=== PATIENT | female | born 1960 | race American Indian/Alaskan Native ===

== ENCOUNTER 2018-12-04 14:56 | Emergency (ER) | payer MEDICAID ==
--- NOTE | 2018-12-04 15:12 | Emergency Department Report ---
Blank Doc - Documentation Documentation: 58-year-old female that presents with right 5th toe pain. Stated had hit her toe. Denies any other complaints or symptoms. This initial assessment diagnostic orders/clinical plan/treatment(s) is/are subject to change based on patient's health status, clinical progression and re- assessment by fellow clinical providers in the ED. Further treatment and workup at subsequent clinical providers discretion. Patient/guardians urged not to elope from ED s their condition may be serious if not clinically assessed and managed. Initial orders include: 1-Patient sent to [facility] for further evaluation and treatment 2- xray
[2018-12-04 15:15] VITALS: BP 112/62
--- NOTE | 2018-12-04 16:39 | XRay Report ---
FINAL REPORT PROCEDURE: Right foot. TECHNIQUE: Three views. HISTORY: Right foot pain. COMPARISON: No prior studies are available for comparison. FINDINGS: The bones appear intact without fracture or dislocation. The joint spaces appear satisfactory. The so ft tissues are unremarkable. IMPRESSION: No significant abnormality.
--- NOTE | 2018-12-04 18:08 | Emergency Department Report ---
HPI - General Chief Complaint: Extremity Injury, Lower Time Seen by Provider: 12/04/18 15:11 - HPI HPI: 58-year-old female with no prior medical history presents to the ED complaining of right fifth digit toe pain let's been hydrating since about November 24. Patient states that she hit it on the side of the bed and pain began shortly after that. Patient states that pain is not getting better. She denies any deformity, any other falls or trauma. ED Past Medical Hx - Past Medical History Previous Medical History?: No - Surgical History Additional Surgical History: tonsillectomy,left ovary,tubiligation - Social History Smoking Status: Never Smoker Substance Use Type: None - Medications Home Medications: Home Medications Medication Instructions Recorded Confirmed Last Taken Type Ibuprofen [Motrin] 800 mg PO Q8HR #30 tablet 12/04/18 Unknown Rx ED Review of Systems ROS: Stated complaint: POSS SPRAINED PINKY TOE Other details as noted in HPI Comment: All other systems reviewed and negative Physical Exam - Physical Exam Vital Signs: Vital Signs 12/04/18 15:11 Temperature 98.2 F Pulse Rate 89 Respiratory 18 Rate Blood Pressure 112/62 O2 Sat by Pulse 100 Oximetry Physical Exam: GENERAL: Alert and oriented x3, no apparent distress, Normal Gait, atraumatic. HEAD: Head is normocephalic and a-traumatic. EXTREMITIES/MUSCULOSKELETAL: No cyanosis, clubbing, rash, lesions or edema. Full ROM bilaterally. UE/LE Pulses 2+ bilaterally. LE and UE 5+ strength bilaterally, no deformity seen, nontender to palpation. NEUROLOGIC: The patient is cooperative with no focal neurologic deficits. SKIN: Warm and dry, No lesions, No ulceration or induration present. ED Course Vital Signs 12/04/18 15:11 Temperature 98.2 F Pulse Rate 89 Respiratory 18 Rate Blood Pressure 112/62 O2 Sat by Pulse 100 Oximetry ED Medical Decision Making - Radiology Data Radiology results: report reviewed, image reviewed FINAL REPORT PROCEDURE: Right foot. TECHNIQUE: Three views. HISTORY: Right foot pain. COMPARISON: No prior studies are available for comparison. FINDINGS: The bones appear intact without fracture or dislocation. The joint spaces appear satisfactory. The soft tissues are unremarkable. IMPRESSION: No significant abnormality. Transcribed By: MRM Dictated By: YENIFER PHILIPPE MD Electronically Authenticated By: YENIFER PHILIPPE MD Signed Date/Time: 12/04/18 1639 - Medical Decision Making 58-year-old female presents with right fifth digit toe pain/contusion X-ray shows no acute findings let's location is no fractures. Discussed this with the patient. I discussed the patient to follow up with primary care physician. Motrin given for pain. Vital signs are normal patient is in no acute distress Critical care attestation.: If time is entered above; I have spent that time in minutes in the direct care of this critically ill patient, excluding procedure time. ED Disposition Clinical Impression: Toe pain, right Disposition: DC-01 TO HOME OR SELFCARE Is pt being admited?: No Does the pt Need Aspirin: No Condition: Stable Instructions: Arthralgia (ED) Additional Instructions: Make sure to follow up with the primary care physician as discussed. Take all your medications as you've been prescribed. If you have any worsening symptoms or develop new symptoms please return to ED immediately. Prescriptions: Ibuprofen [Motrin] 800 mg PO Q8HR #30 tablet Referrals: DANNY DAILY [Primary Care Provider] - 3-5 Days Forms: Work/School Release Form(ED) Time of Disposition: 18:08
== END 2018-12-04 18:18 | disposition home or self-care (01) ==
LOC: ED 14:56
DX: M79.674 Pain in right toe(s) (principal); Z90.89 Acquired absence of other organs; Z98.51 Tubal ligation status
CPT/HCPCS: 99282

== ENCOUNTER 2019-07-10 12:03 | Emergency (ER) | payer MEDICAID ==
[2019-07-10 12:19] VITALS: BP 124/76
--- NOTE | 2019-07-10 12:45 | Emergency Department Report ---
ED Back Pain/Injury HPI - General Chief Complaint: Fall Stated Complaint: FELL/INJURY LT KNEE Time Seen by Provider: 07/10/19 12:44 Source: patient Limitations: No Limitations - History of Present Illness Initial Comments: Ms. Santiago is a 58-year-old -Polish female who comes to the ER after a ground-level fall on Tuesday. She states that she was getting out of the ba thtub and slipped and she landed on her left knee. She comes in with persistent left knee pain. NSAIDs at home have not been working. She has minor swelling. There is no other injury. Her pain is 5 out of 10 and is described as throbbing. Pt is ambulatory - Related Data Previous Rx's Medication Instructions Recorded Last Taken Type Ibuprofen [Motrin] 800 mg PO Q8HR #30 tablet 12/04/18 Unknown Rx Allergies Allergy/AdvReac Type Severity Reaction Status Date / Time Penicillins Allergy Anaphylaxis Verified 07/10/19 12:06 Sulfa (Sulfonamide Allergy Hives Verified 07/10/19 12:06 Antibiotics) ED Review of Systems ROS: Stated complaint: FELL/INJURY LT KNEE Other details as noted in HPI Comment: All other systems reviewed and negative ED Past Medical Hx - Past Medical History Medical history: no medical history Surgical history: no surgical history ED Back Pain Physical Exam - Exam General: Vital signs noted. No distress. Alert and acting appropriately. Back/Abdomen: No Abdominal Tenderness, No Perithoracic Tenderness Neuro: Yes Normal Sensation, Yes Normal DTR's, Yes Normal Gait, No Motor Weakness ED Course Vital Signs 07/10/19 12:17 Temperature 98.8 F Pulse Rate 75 Respiratory 18 Rate Blood Pressure 124/76 O2 Sat by Pulse 98 Oximetry Ed Back Pain Tests - Tests Tests: Abnormal X Rays ED Medical Decision Making - Radiology Data Radiology results: report reviewed, image reviewed - Medical Decision Making ambulatory neurovasc intact small effusion l knee on exam no joint line tenderness xray noted immbolizer/crutches dc home with nsaids and ortho follow up Vital Signs 07/10/19 12:17 Temperature 98.8 F Pulse Rate 75 Respiratory 18 Rate Blood Pressure 124/76 O2 Sat by Pulse 98 Oximetry - Differential Diagnosis ro fx Critical care attestation.: If time is entered above; I have spent that time in minutes in the direct care of this critically ill patient, excluding procedure time. ED Disposition Clinical Impression: Knee pain, Knee effusion, Arthritis, Fall from ground level, Contusion Disposition: - TO HOME OR SELFCARE Is pt being admited?: No Does the pt Need Aspirin: No Condition: Stable Instructions: Knee Effusion (ED), Arthralgia (ED) Additional Instructions: ICE REST ELEVATE IMMOBILIZER CRUTCHES MOTRIN FOR PAIN FOLLOW UP WITH DR DAILEY NEXT WEEK Referrals: WINDY DAILEY MD [Staff Physician] - 3-5 Days Time of Disposition: 13:26
--- NOTE | 2019-07-10 13:24 | XRay Report ---
Left knee-4 views INDICATION: KNEE PAIN. Fall today with generalized knee pain COMPARISON: None. IMPRESSION: No acute osseous abnormality. Moderate degenerative arthrosis in the knee greatest in the medial compartment. Trace suprapatellar effusion. Signer Name: Seth Crawley MD Signed: 07/10/2019 1:19 PM Workstation Name: [id number]
== END 2019-07-10 14:59 | disposition home or self-care (01) ==
LOC: ED 12:03
DX: M25.462 Effusion, left knee (principal); M19.90 Unspecified osteoarthritis, unspecified site; S80.02XA Contusion of left knee, initial encounter; Z88.0 Allergy status to penicillin; Z88.2 Allergy status to sulfonamides; W01.0XXA Fall on same level from slipping, tripping and stumbling without subsequent striking against object, initial encounter; Y93.89 Activity, other specified; Y92.89 Other specified places as the place of occurrence of the external cause; Y99.8 Other external cause status
CPT/HCPCS: 99283

== ENCOUNTER 2021-01-17 00:51 | Emergency (ER) | payer SELFPAY ==
[2021-01-17] MEDS ORDERED: KETOROLAC 30 MG/1 ML INJ IM ONE (06:52)
--- NOTE | 2021-01-17 07:01 | Emergency Department Report ---
Upper Extremity - HPI Chief Complaint: Shoulder Injury Stated Complaint: SHOULDER PAIN Upper Extremity: Left Shoulder Occurred When: >5 Days Symptoms: Yes Pain with Movement, Yes Limited Range of Movement Other History: 60-year-old -[place] female presents to the emergency room for chronic left shoulder pain has not been relieved by her [id number] pain medication. Patient states that she has a history of a rotator cuff injury and tear. Patient denies any recent injury. She denies any weakness. She states that Toradol seems to help with her pain the most. She is followed by providers in [place]. ED Review of Systems ROS: Stated complaint: SHOULDER PAIN Other details as noted in HPI Comment: All other systems reviewed and negative ED Past Medical Hx - Past Medical History Previous Medical History?: Yes Additional medical history: Left rotator Cuff tear. Chronic Pain Left Shoulder. - Surgical History Past Surgical History?: Yes Additional Surgical History: tonsillectomy,left ovary,tubiligation - Social History Smoking Status: Never Smoker Substance Use Type: None - Medications Home Medications: Home Medications Medication Instructions Recorded Confirmed Last Taken Type Ibuprofen [Motrin] 800 mg PO Q8HR #30 tablet 12/04/18 Unknown Rx Upper Extremity Exam - Exam General: Vital signs noted. No distress. Alert and acting appropriately. Head and Torso: No HEENT Abnormality, No Neck Tenderness, No Chest/Lungs Abnormality, No Abdominal Tenderness, No Back Tenderness Shoulder Exam: Yes Shoulder Tenderness, Yes Normal Range of Motion in Shoulder, No Clavicle Tenderness, No Shoulder Deformity, No AC Joint Tenderness Arm Exam: No Arm/Humerus Tenderness, No Arm Deformity Elbow: No Elbow Tenderness, No Normal Range of Motion in Elbow, No Elbow Deformity Forearm: No Forearm Tenderness, No Forearm Deformity, No Pain with Pronation, No Pain with Supination Wrist: Yes Normal ROM in Wrist, No Wrist Tenderness, No Wrist Deformity, No Snuffbox Tenderness, No Pain with Axial Thumb Compression Hand: Yes Normal ROM in Digit(s), No Hand Tenderness, No Hand Deformity, No Digit Tenderness, No Digit(s) Deformity, No Tendon Dysfunction CMS Exam: No Broken Skin, No Normal Distal Pulses, No Normal Capillary Refill, No Normal Distal Sensation ED Course Vital Signs 01/17/21 02:18 Temperature 98.2 F Pulse Rate 72 Respiratory 18 Rate Blood Pressure 134/90 O2 Sat by Pulse 100 Oximetry ED Medical Decision Making - Medical Decision Making 60-year-old -[place] female presents to the emergency room for chronic left shoulder pain has not been relieved by her [id number] pain medication. Patient states that she has a history of a rotator cuff injury and tear. Patient denies any recent injury. She denies any weakness. She states that Toradol seems to help with her pain the most. She is followed by providers in [place]. Toradol 30 mg IM for pain management. Critical care attestation.: If time is entered above; I have spent that time in minutes in the direct care of this critically ill patient, excluding procedure time. ED Disposition Clinical Impression: Chronic left shoulder pain Disposition: DC-01 TO HOME OR SELFCARE Is pt being admited?: No Does the pt Need Aspirin: No Condition: Stable Instructions: Joint Pain, [id number] Additional Instructions: Please continue with your pain medication. Follow-up with the orthopedic provider. Referrals: JESUS RUTLEDGE MD [Primary Care Provider] - 3-5 Days WINDY DAILEY MD [Staff Physician] - 3-5 Days
[2021-01-17 07:30] VITALS: BP 132/72
== END 2021-01-17 07:30 | disposition home or self-care (01) ==
LOC: ED 00:51
DX: M25.512 Pain in left shoulder (principal); G89.29 Other chronic pain; Z79.899 Other long term (current) drug therapy; Z98.890 Other specified postprocedural states; Z98.51 Tubal ligation status; Z88.8 Allergy status to other drugs, medicaments and biological substances; Z88.0 Allergy status to penicillin
CPT/HCPCS: 96372; 99282; J1885